=== PATIENT | female | born 1940 | race Caucasian/White ===

== ENCOUNTER 2018-04-20 11:15 | Inpatient (IN) ==
[2018-04-20] MEDS ORDERED: SODIUM CHLORIDE 0.9% 500 ML IV STA ×2 (12:09→12:18)
[2018-04-20 12:18] LABS: Basophils % 0.3 % (0.0-0.8); Eosinophils % 0.2 % (0.00-10.9); Hematocrit 41.4 VOL% (35.7-47.0); Hemoglobin 13.4 GM/DL (12.0-16.0); Immature Granulocytes % 0.8 %; Immature Granulocytes Absolute 0.13 #; Lymphocytes # 0.6 10*3/uL (1.4-4.0); Lymphocytes % 3.5 % (21.3-54.2); Mean Corpuscular HGB Conc 32.4 GM/DL (32-36); Mean Corpuscular Hemoglobin 31 PG (27-34); Mean Corpuscular Volume 95.6 FL (87-102); Mean Platelet Volume 10.6 FL (9.6-12.0); Monocytes % 6.5 % (1.7-12.7); Neutrophils # 14.1 10*3/uL (1.4-7.4); Neutrophils % 88.7 % (38.7-73.9); Platelet Count 223 T/CUMM (130-400); Red Blood Count 4.33 MC/CUMM (3.8-5.5); Red Cell Distribution Width 12.9 % (9.3-17.3); White Blood Count 15.9 T/CUMM (4-12)
[2018-04-20 12:37] LABS: Band Neutrophils 19 % (0-10); Lymphocytes 2 % (20-55); Platelet Estimate Normal; Segmented Neutrophils 72 % (50-85); Total Cells Counted 100
[2018-04-20 12:51] LABS: Albumin 3.6 G/DL (3.4-5.0); Bilirubin,Total 1.6 MG/DL (0.2-1.0); Calcium 9.4 MG/DL (8.5-10.1); Potassium 4.5 MMOL/L (3.5-5.1); Total Protein 7.2 G/DL (6.4-8.3)
[2018-04-20 12:58] LABS: Apearance,Urine Slightly Hazy (Clear); Blood, Urine Negative (Negative); Glucose,Urine (UA) Negative (Negative); Hyaline Casts,Urine 3 /LPF (0-3); Ketones,Urine Negative (Negative); Mucus,Urine Occasional /LPF (Occasional); Nitrite,Urine Negative (Negative); Protein,Urine 30 MG/DL; RBC,Urine 1 /HPF (0-4); Squamous Epithelial Cell,Urine Occasional /HPF (0-10); Urine Color Amber (Yellow); Urine Specific Gravity 1.019 (1.001-1.035); WBC,Urine 3 /HPF (0-6)
[2018-04-20 13:00] LABS: Bilirubin,Urine Small mg/dL (Negative)
[2018-04-20] MEDS ORDERED: ONDANSETRON 4 MG/2 ML VIAL IV PRN (13:21)
[2018-04-20] MEDS ORDERED: CLINDAMYCIN INJ 600 MG in PREMIX 1 EACH IV STA (13:27)
[2018-04-20] MEDS ORDERED: LEVOFLOXACIN INJ 500 MG in PREMIX 1 EACH IV STA (13:27)
[2018-04-20] MEDS: SODIUM CHLORIDE 0.9% 1,000 ML IV SCH (14:45)
[2018-04-20] MEDS ORDERED: ALBUTEROL 2.5 MG/3 ML NEB RESP TX PRN (16:50)
[2018-04-20] MEDS: ACETAMINOPHEN 325 MG TABLET PO PRN (19:11)
[2018-04-20] MEDS: ALBUTEROL 2.5 MG/3 ML NEB RESP TX SCH (19:16)
[2018-04-20] MEDS: BUDESONIDE/FORMOTEROL 160-4.5 INHALER 6 GM INH SCH (21:58)
[2018-04-20] MEDS: DOCUSATE SODIUM 100 MG CAPSULE PO SCH (21:58)
[2018-04-21] MEDS: SODIUM CHLORIDE 0.9% 1,000 ML IV SCH ×2 (00:45→11:30)
[2018-04-21] MEDS: ALBUTEROL 2.5 MG/3 ML NEB RESP TX SCH ×4 (02:11→19:08)
[2018-04-21 08:38] LABS: Albumin 2.9 G/DL (3.4-5.0); Bilirubin,Direct 0.26 MG/DL (0.0-0.20); Bilirubin,Indirect 0.4 MG/DL (0.0-1.0); Bilirubin,Total 0.7 MG/DL (0.2-1.0); Total Protein 6.2 G/DL (6.4-8.3)
[2018-04-21] MEDS ORDERED: LACTATED RINGERS 500 ML IV ONE (09:08)
[2018-04-21 09:58] LABS: INR 1.1
[2018-04-21 10:08] LABS: Calcium 8.5 MG/DL (8.5-10.1); Osmolality,Calculated 287.4 MOS/KG (273-304); Potassium 3.8 MMOL/L (3.5-5.1)
[2018-04-21] MEDS ORDERED: INDOMETHACIN SUPP 50 MG SUPP RECTAL ONE (10:33)
[2018-04-21 10:38] LABS: Mean Corpuscular Volume 99.7 FL (87-102); Mean Platelet Volume 11.3 FL (9.6-12.0); Neutrophils % 85.6 % (38.7-73.9)
[2018-04-21 10:43] LABS: Basophils % 0.4 % (0.0-0.8); Eosinophils # 0.1 10*3/uL (0.0-0.87); Eosinophils % 0.6 % (0.00-10.9); Immature Granulocytes Absolute 0.08 #; Lymphocytes # 0.6 10*3/uL (1.4-4.0); Mean Corpuscular HGB Conc 30.8 GM/DL (32-36); Mean Corpuscular Hemoglobin 31 PG (27-34); Monocytes # 0.4 10*3/uL (0.11-0.8); Monocytes % 5.4 % (1.7-12.7); Platelet Count 190 T/CUMM (130-400); Red Blood Count 3.71 MC/CUMM (3.8-5.5)
[2018-04-21 10:44] LABS: Hemoglobin 11.4 GM/DL (12.0-16.0); White Blood Count 8.1 T/CUMM (4-12)
[2018-04-21] MEDS: BUDESONIDE/FORMOTEROL 160-4.5 INHALER 6 GM INH SCH ×2 (10:48→22:24)
[2018-04-21] MEDS: DOCUSATE SODIUM 100 MG CAPSULE PO SCH ×2 (10:50→22:20)
[2018-04-21] MEDS: PANTOPRAZOLE 40 MG TABLET PO SCH (10:50)
[2018-04-21] MEDS: TRIAMTERENE/HCTZ 37.5-25 MG TABLET PO SCH (10:50)
[2018-04-21] MEDS: CIPROFLOXACIN INJ 400 MG in PREMIX 1 EACH IV SCH ×2 (11:31→22:20)
[2018-04-21] MEDS ORDERED: ALBUTEROL/IPRATROPIUM 3 ML NEB RESP TX ONE (12:24)
[2018-04-21] MEDS ORDERED: fentaNYL 100 MCG/2 ML VIAL ONE (12:43)
[2018-04-21] MEDS ORDERED: MIDAZOLAM 2 MG/2 ML VIAL ONE (12:44)
[2018-04-22] MEDS: ALBUTEROL 2.5 MG/3 ML NEB RESP TX SCH ×4 (00:52→19:05)
[2018-04-22] MEDS: SODIUM CHLORIDE 0.9% 1,000 ML IV SCH ×3 (01:02→11:20)
[2018-04-22 04:41] LABS: Basophils % 0.3 % (0.0-0.8); Eosinophils # 0.1 10*3/uL (0.0-0.87); Eosinophils % 1.3 % (0.00-10.9); Hematocrit 37.2 VOL% (35.7-47.0); Hemoglobin 11.3 GM/DL (12.0-16.0); Immature Granulocytes % 1.2 %; Immature Granulocytes Absolute 0.09 #; Lymphocytes # 0.8 10*3/uL (1.4-4.0); Lymphocytes % 9.8 % (21.3-54.2); Mean Corpuscular HGB Conc 30.4 GM/DL (32-36); Mean Corpuscular Hemoglobin 31 PG (27-34); Mean Corpuscular Volume 101.1 FL (87-102); Mean Platelet Volume 10.6 FL (9.6-12.0); Monocytes # 0.5 10*3/uL (0.11-0.8); Monocytes % 6.9 % (1.7-12.7); Neutrophils # 6.2 10*3/uL (1.4-7.4); Neutrophils % 80.5 % (38.7-73.9); Platelet Count 204 T/CUMM (130-400); Red Blood Count 3.68 MC/CUMM (3.8-5.5); Red Cell Distribution Width 12.9 % (9.3-17.3); White Blood Count 7.7 T/CUMM (4-12)
[2018-04-22 05:09] LABS: Calcium 8.4 MG/DL (8.5-10.1); Osmolality,Calculated 284.3 MOS/KG (273-304); Potassium 4.2 MMOL/L (3.5-5.1); Total Protein 6.2 G/DL (6.4-8.3)
[2018-04-22] MEDS ORDERED: BUPIVACAINE 0.5% 50 ML VIAL ONE (06:58)
[2018-04-22] MEDS ORDERED: LIDOCAINE 1%/EPI INJ 20 ML VIAL ONE (06:58)
[2018-04-22] MEDS ORDERED: TISSUE ADHESIVE 1 EACH APPLICATOR TOP ONE (06:58)
[2018-04-22] MEDS ORDERED: NEOSTIGMINE 10 MG/10 ML VIAL ONE (09:11)
[2018-04-22] MEDS ORDERED: GLYCOPYRROLATE 0.4 MG/2 ML VIAL ONE (09:11)
[2018-04-22] MEDS ORDERED: SEVOFLURANE 1 UNIT/15 MINUTE INH ONE (09:11)
[2018-04-22] MEDS ORDERED: ONDANSETRON 4 MG/2 ML VIAL ONE ×2 (09:11→11:11)
[2018-04-22] MEDS ORDERED: PROPOFOL 200 MG/20 ML VIAL IV ONE ×2 (09:11→11:11)
[2018-04-22] MEDS ORDERED: ROCURONIUM 100 MG/10 ML VIAL IV ONE ×2 (09:11→11:11)
[2018-04-22] MEDS ORDERED: LACTATED RINGERS 1,000 ML IV ONE (09:12)
[2018-04-22] MEDS ORDERED: fentaNYL 100 MCG/2 ML VIAL ONE (09:13)
[2018-04-22] MEDS ORDERED: ACETAMINOPHEN 1,000 MG/100 ML VIAL IV ONE (09:27)
[2018-04-22] MEDS ORDERED: BUPIVACAINE LIPOSOMAL 20 ML/266 MG VIAL ONE (09:32)
[2018-04-22] MEDS ORDERED: ALBUTEROL/IPRATROPIUM 3 ML NEB RESP TX PRN (10:36)
[2018-04-22] MEDS ORDERED: MORPHINE 4 MG/1 ML VIAL IV PRN ×2 (10:36)
[2018-04-22] MEDS ORDERED: BISACODYL 5 MG TABLET PO PRN (10:36)
[2018-04-22] MEDS ORDERED: ONDANSETRON 4 MG/2 ML VIAL IV PRN (10:36)
[2018-04-22] MEDS ORDERED: SUCCINYLCHOLINE 200 MG/10 ML VIAL ONE (11:11)
[2018-04-22] MEDS ORDERED: LIDOCAINE 2% 5 ML VIAL ONE (11:11)
[2018-04-22] MEDS: TRIAMTERENE/HCTZ 37.5-25 MG TABLET PO SCH (11:19)
[2018-04-22] MEDS: BUDESONIDE/FORMOTEROL 160-4.5 INHALER 6 GM INH SCH ×2 (11:19→21:09)
[2018-04-22] MEDS: CIPROFLOXACIN INJ 400 MG in PREMIX 1 EACH IV SCH ×2 (11:19→21:13)
[2018-04-22] MEDS: DOCUSATE SODIUM 100 MG CAPSULE PO SCH (11:20)
[2018-04-22] MEDS: PANTOPRAZOLE 40 MG TABLET PO SCH (11:20)
[2018-04-22] MEDS: LACTATED RINGERS 1,000 ML IV SCH (11:29)
[2018-04-22] MEDS: ACETAMINOPHEN 325 MG TABLET PO PRN (14:45)
[2018-04-22] MEDS: KETOROLAC 15 MG/1 ML VIAL IV PRN (14:46)
[2018-04-23] MEDS: ALBUTEROL 2.5 MG/3 ML NEB RESP TX SCH ×4 (00:33→19:44)
[2018-04-23] MEDS: LACTATED RINGERS 1,000 ML IV SCH (01:40)
[2018-04-23 05:02] LABS: Basophils % 0.2 % (0.0-0.8); Eosinophils # 0.1 10*3/uL (0.0-0.87); Eosinophils % 0.5 % (0.00-10.9); Hematocrit 35.9 VOL% (35.7-47.0); Hemoglobin 10.8 GM/DL (12.0-16.0); Immature Granulocytes % 0.6 %; Immature Granulocytes Absolute 0.07 #; Lymphocytes # 0.6 10*3/uL (1.4-4.0); Lymphocytes % 5.4 % (21.3-54.2); Mean Corpuscular HGB Conc 30.1 GM/DL (32-36); Mean Corpuscular Hemoglobin 30 PG (27-34); Mean Corpuscular Volume 100.8 FL (87-102); Mean Platelet Volume 10.1 FL (9.6-12.0); Monocytes # 0.7 10*3/uL (0.11-0.8); Monocytes % 5.9 % (1.7-12.7); Neutrophils % 87.4 % (38.7-73.9); Platelet Count 206 T/CUMM (130-400); Red Blood Count 3.56 MC/CUMM (3.8-5.5); Red Cell Distribution Width 13.1 % (9.3-17.3); White Blood Count 11.4 T/CUMM (4-12)
[2018-04-23 05:25] LABS: Albumin 2.6 G/DL (3.4-5.0); Bilirubin,Total 0.8 MG/DL (0.2-1.0); Calcium 8.4 MG/DL (8.5-10.1); Osmolality,Calculated 280.7 MOS/KG (273-304); Potassium 4.5 MMOL/L (3.5-5.1); Total Protein 5.7 G/DL (6.4-8.3)
[2018-04-23] MEDS: KETOROLAC 15 MG/1 ML VIAL IV PRN ×3 (08:41→22:29)
[2018-04-23] MEDS: PANTOPRAZOLE 40 MG VIAL IV SCH (08:41)
[2018-04-23] MEDS: CIPROFLOXACIN INJ 400 MG in PREMIX 1 EACH IV SCH ×2 (08:50→20:50)
[2018-04-23] MEDS: TRIAMTERENE/HCTZ 37.5-25 MG TABLET PO SCH (10:30)
[2018-04-23] MEDS: BUDESONIDE/FORMOTEROL 160-4.5 INHALER 6 GM INH SCH ×2 (10:31→20:49)
[2018-04-24] MEDS: ALBUTEROL 2.5 MG/3 ML NEB RESP TX SCH ×4 (00:08→19:30)
[2018-04-24] MEDS: LACTATED RINGERS 1,000 ML IV SCH ×3 (00:42→15:30)
[2018-04-24] MEDS: KETOROLAC 15 MG/1 ML VIAL IV PRN ×2 (07:53→15:29)
[2018-04-24] MEDS: PANTOPRAZOLE 40 MG VIAL IV SCH (08:41)
[2018-04-24] MEDS: CIPROFLOXACIN INJ 400 MG in PREMIX 1 EACH IV SCH ×2 (08:46→21:59)
[2018-04-24] MEDS: TRIAMTERENE/HCTZ 37.5-25 MG TABLET PO SCH (08:51)
[2018-04-24] MEDS: BUDESONIDE/FORMOTEROL 160-4.5 INHALER 6 GM INH SCH ×2 (10:05→21:58)
[2018-04-25] MEDS: ALBUTEROL 2.5 MG/3 ML NEB RESP TX SCH ×3 (00:35→12:13)
[2018-04-25] MEDS: KETOROLAC 15 MG/1 ML VIAL IV PRN (05:16)
[2018-04-25] MEDS: TRIAMTERENE/HCTZ 37.5-25 MG TABLET PO SCH (09:11)
[2018-04-25] MEDS: PANTOPRAZOLE 40 MG VIAL IV SCH (09:11)
[2018-04-25] MEDS: CIPROFLOXACIN INJ 400 MG in PREMIX 1 EACH IV SCH (09:12)
[2018-04-25] MEDS: BUDESONIDE/FORMOTEROL 160-4.5 INHALER 6 GM INH SCH (09:14)
[2018-04-25 11:48] VITALS: BP 113/70
[2018-04-25] MEDS ORDERED: CIPROFLOXACIN 500 MG TABLET PO SCH (21:00)
== END 2018-04-25 15:35 | disposition home or self-care (01) | DRG 853 ==
LOC: N.ED 11:15 → N.EDINP 13:20 → N.2E 14:42
PROVIDERS: ADMIT Family Medicine; ATTEND Family Medicine
PROC: ERCPWSP (ICD-10-PCS; 2018-04-21 11:50)
PROC: LAPCHOL (2018-04-22 07:16)

== ENCOUNTER 2018-08-24 09:59 | Observation (INO) ==
[2018-08-24] MEDS ORDERED: methylPREDNISolone SOD SUC 125 MG/2 ML VIAL IV STA (10:40)
[2018-08-24] MEDS ORDERED: ALBUTEROL/IPRATROPIUM 3 ML NEB RESP TX STA (10:40)
[2018-08-24] MEDS ORDERED: LEVOFLOXACIN INJ 500 MG in PREMIX 1 EACH IV STA (10:40)
[2018-08-24 10:47] LABS: Basophils # 0.1 10*3/uL (0.0-0.2); Basophils % 0.4 % (0.0-0.8); Eosinophils # 0.3 10*3/uL (0.0-0.87); Eosinophils % 1.8 % (0.00-10.9); Hematocrit 43.3 VOL% (35.7-47.0); Hemoglobin 13.7 GM/DL (12.0-16.0); Immature Granulocytes % 0.6 %; Immature Granulocytes Absolute 0.09 #; Lymphocytes # 1.2 10*3/uL (1.4-4.0); Lymphocytes % 8.4 % (21.3-54.2); Mean Corpuscular HGB Conc 31.6 GM/DL (32-36); Mean Corpuscular Volume 92.5 FL (87-102); Mean Platelet Volume 9.8 FL (9.6-12.0); Neutrophils % 81.8 % (38.7-73.9); Platelet Count 299 T/CUMM (130-400); Red Blood Count 4.68 MC/CUMM (3.8-5.5); Red Cell Distribution Width 14.2 % (9.3-17.3); White Blood Count 14.1 T/CUMM (4-12)
[2018-08-24 11:05] LABS: Albumin 3.2 G/DL (3.4-5.0); Bilirubin,Total 0.5 MG/DL (0.2-1.0); Calcium 9.2 MG/DL (8.5-10.1); Total Protein 6.5 G/DL (6.4-8.3)
[2018-08-24] MEDS ORDERED: GLUCAGON 1 MG VIAL IM PRN (12:59)
[2018-08-24] MEDS ORDERED: DEXTROSE 50% 25 GM/50 ML SYRINGE IV PRN (12:59)
[2018-08-24] MEDS ORDERED: ACETAMINOPHEN 325 MG TABLET PO PRN (13:04)
[2018-08-24] MEDS ORDERED: ONDANSETRON 4 MG/2 ML VIAL IV PRN (13:04)
[2018-08-24] MEDS: ALBUTEROL/IPRATROPIUM 3 ML NEB RESP TX SCH ×2 (14:07→20:16)
[2018-08-24] MEDS ORDERED: ALBUTEROL 2.5 MG/3 ML NEB RESP TX PRN (16:29)
[2018-08-24] MEDS ORDERED: LISINOPRIL 20 MG TABLET PO PRN (16:29)
[2018-08-24] MEDS: methylPREDNISolone SOD SUC 125 MG/2 ML VIAL IV SCH (17:33)
[2018-08-24] MEDS: BUDESONIDE/FORMOTEROL 160-4.5 INHALER 6 GM INH SCH (21:39)
[2018-08-24] MEDS: ATORVASTATIN 20 MG TABLET PO SCH ×2 (21:40→21:43)
[2018-08-24] MEDS: DOCUSATE SODIUM 100 MG CAPSULE PO SCH ×2 (21:40→21:43)
[2018-08-25] MEDS: ALBUTEROL/IPRATROPIUM 3 ML NEB RESP TX SCH ×5 (00:15→19:15)
[2018-08-25] MEDS: methylPREDNISolone SOD SUC 125 MG/2 ML VIAL IV SCH (01:30)
[2018-08-25] MEDS: DOCUSATE SODIUM 100 MG CAPSULE PO SCH ×2 (08:59→20:47)
[2018-08-25] MEDS ORDERED: GLIMEPIRIDE 2 MG TABLET PO SCH (09:00)
[2018-08-25] MEDS ORDERED: predniSONE 10 MG TABLET PO SCH (09:00)
[2018-08-25] MEDS ORDERED: TRIAMTERENE/HCTZ 37.5-25 MG TABLET PO SCH (09:00)
[2018-08-25] MEDS ORDERED: PANTOPRAZOLE 40 MG TABLET PO SCH (09:00)
[2018-08-25] MEDS: BUDESONIDE/FORMOTEROL 160-4.5 INHALER 6 GM INH SCH ×2 (09:02→20:47)
[2018-08-25] MEDS: ATORVASTATIN 20 MG TABLET PO SCH (20:47)
[2018-08-26 03:47] VITALS: BP 132/77
== END 2018-08-26 07:00 | disposition home or self-care (01) ==
LOC: N.EDINP 09:59 → N.ED 09:59 → N.5E 16:06
PROVIDERS: ADMIT Family Medicine; ATTEND Family Medicine

== ENCOUNTER 2018-09-28 14:14 | Inpatient (IN) ==
[2018-09-28] MEDS ORDERED: ALBUTEROL/IPRATROPIUM 3 ML NEB RESP TX STA ×2 (14:44→22:00)
[2018-09-28] MEDS ORDERED: SODIUM CHLORIDE 0.9% 500 ML IV STA (14:44)
[2018-09-28] MEDS ORDERED: LEVOFLOXACIN INJ 750 MG in PREMIX 1 EACH IV STA (14:44)
[2018-09-28] MEDS ORDERED: methylPREDNISolone SOD SUC 125 MG/2 ML VIAL IV STA (14:44)
[2018-09-28 14:51] LABS: Basophils % 0.3 % (0.0-0.8); Eosinophils % 0.2 % (0.00-10.9); Hematocrit 45.5 VOL% (35.7-47.0); Hemoglobin 14.4 GM/DL (12.0-16.0); Immature Granulocytes % 1.1 %; Immature Granulocytes Absolute 0.11 #; Lymphocytes # 0.3 10*3/uL (1.4-4.0); Lymphocytes % 2.7 % (21.3-54.2); Mean Corpuscular HGB Conc 31.6 GM/DL (32-36); Mean Corpuscular Volume 92.5 FL (87-102); Mean Platelet Volume 10.1 FL (9.6-12.0); Monocytes % 0.4 % (1.7-12.7); Neutrophils % 95.3 % (38.7-73.9); Platelet Count 219 T/CUMM (130-400); Red Blood Count 4.92 MC/CUMM (3.8-5.5); Red Cell Distribution Width 14.6 % (9.3-17.3); White Blood Count 10.3 T/CUMM (4-12)
[2018-09-28 15:12] LABS: Albumin 3.5 G/DL (3.4-5.0); Calcium 9.7 MG/DL (8.5-10.1); Osmolality,Calculated 288.1 MOS/KG (273-304); Total Protein 6.6 G/DL (6.4-8.3)
[2018-09-28 15:17] LABS: Band Neutrophils 6 % (0-10); Eosinophils 1 % (0-10); Lymphocytes 2 % (20-55); Platelet Estimate Normal; Segmented Neutrophils 90 % (50-85); Total Cells Counted 100
[2018-09-28] MEDS ORDERED: SODIUM CHLORIDE 0.9% 2,500 ML IV ONE (15:19)
[2018-09-28 15:26] LABS: Apearance,Urine Slightly Hazy (Clear); Bilirubin,Urine Negative (Negative); Blood, Urine Moderate mg/dL (Negative); Glucose,Urine (UA) Negative (Negative); Ketones,Urine 5 mg/dL (Negative); Nitrite,Urine Negative (Negative); Protein,Urine 30 MG/DL; RBC,Urine 20 /HPF (0-4); Squamous Epithelial Cell,Urine Occasional /HPF (0-10); Urine Specific Gravity 1.031 (1.001-1.035); WBC,Urine 79 /HPF (0-6)
[2018-09-28 15:27] LABS: Urine Color Dark yellow (Yellow)
[2018-09-28] MEDS ORDERED: ONDANSETRON 4 MG/2 ML VIAL IV PRN (15:38)
[2018-09-28] MEDS ORDERED: SODIUM CHLORIDE 0.9% 1,000 ML IV STA (15:41)
[2018-09-28] MEDS ORDERED: SODIUM CHLORIDE 0.9% 1,000 ML IV SCH (16:00)
[2018-09-28] MEDS ORDERED: MAGNESIUM SULF RIDER 2 GM in PREMIX 1 EACH IV ONE (17:34)
[2018-09-28] MEDS: ALBUTEROL/IPRATROPIUM 3 ML NEB RESP TX SCH ×2 (19:26→23:21)
[2018-09-28] MEDS: MAGNESIUM SULF IV SCH (20:36)
[2018-09-28] MEDS: ATORVASTATIN 20 MG TABLET PO SCH (20:36)
[2018-09-28] MEDS: BUDESONIDE/FORMOTEROL 160-4.5 INHALER 6 GM INH SCH (20:36)
[2018-09-28] MEDS: DOCUSATE SODIUM 100 MG CAPSULE PO SCH (20:36)
[2018-09-28] MEDS: POTASSIUM CHLORIDE IV SCH (20:36)
[2018-09-28] MEDS: MAGNESIUM CHLORIDE 64 MG TABLET PO SCH (20:36)
[2018-09-28] MEDS: SODIUM CHLORIDE 0.9% IV SCH (20:36)
[2018-09-28] MEDS: metFORMIN 500 MG TABLET PO SCH (20:36)
[2018-09-28] MEDS ORDERED: FUROSEMIDE 20 MG/2 ML VIAL IV ONE (21:58)
[2018-09-28] MEDS: INSULIN LISPRO 100 UNIT/ML SUBCUT SCH (23:03)
[2018-09-28] MEDS: methylPREDNISolone SOD SUC 40 MG/1 ML VIAL IV SCH (23:51)
[2018-09-29] MEDS: ALBUTEROL/IPRATROPIUM 3 ML NEB RESP TX SCH ×6 (04:15→22:50)
[2018-09-29 04:20] LABS: Basophils # 0.1 10*3/uL (0.0-0.2); Basophils % 0.4 % (0.0-0.8); Hematocrit 41.8 VOL% (35.7-47.0); Hemoglobin 12.7 GM/DL (12.0-16.0); Immature Granulocytes % 2.3 %; Immature Granulocytes Absolute 0.51 #; Lymphocytes # 0.4 10*3/uL (1.4-4.0); Lymphocytes % 1.7 % (21.3-54.2); Mean Corpuscular HGB Conc 30.4 GM/DL (32-36); Mean Corpuscular Volume 95.9 FL (87-102); Mean Platelet Volume 10.6 FL (9.6-12.0); Monocytes % 2.4 % (1.7-12.7); Neutrophils % 93.2 % (38.7-73.9); Platelet Count 192 T/CUMM (130-400); Red Blood Count 4.36 MC/CUMM (3.8-5.5); Red Cell Distribution Width 15.1 % (9.3-17.3); White Blood Count 22.6 T/CUMM (4-12)
[2018-09-29 05:03] LABS: Band Neutrophils 9 % (0-10); Lymphocytes 3 % (20-55); Metamyelocytes 6 %; Myelocytes 4 %; Segmented Neutrophils 76 % (50-85); Total Cells Counted 100
[2018-09-29 05:06] LABS: Albumin 2.9 G/DL (3.4-5.0); Bilirubin,Total 1.7 MG/DL (0.2-1.0); Calcium 8.9 MG/DL (8.5-10.1); Osmolality,Calculated 293.8 MOS/KG (273-304); Risk Ratio 2.49; Thyroid Stimulating Hormone 0.451 uIU/ml (0.358-3.74); Total Protein 5.9 G/DL (6.4-8.3); VLDL CHOLESTEROL 24.8 MG/DL
[2018-09-29 05:10] LABS: Platelet Estimate Normal; Polychromasia Few
[2018-09-29] MEDS: methylPREDNISolone SOD SUC 40 MG/1 ML VIAL IV SCH ×3 (06:19→22:04)
[2018-09-29] MEDS: INSULIN LISPRO 100 UNIT/ML SUBCUT SCH ×4 (07:15→22:28)
[2018-09-29] MEDS: ACETAMINOPHEN 325 MG TABLET PO PRN ×2 (08:24→17:29)
[2018-09-29] MEDS: GLIMEPIRIDE 2 MG TABLET PO SCH (08:24)
[2018-09-29] MEDS: DOCUSATE SODIUM 100 MG CAPSULE PO SCH ×2 (08:24→22:03)
[2018-09-29] MEDS: metFORMIN 500 MG TABLET PO SCH (08:24)
[2018-09-29] MEDS: MAGNESIUM CHLORIDE 64 MG TABLET PO SCH ×2 (08:24→22:03)
[2018-09-29] MEDS: BUDESONIDE/FORMOTEROL 160-4.5 INHALER 6 GM INH SCH ×2 (08:25→22:03)
[2018-09-29] MEDS: PANTOPRAZOLE 40 MG TABLET PO SCH (08:25)
[2018-09-29] MEDS: SODIUM CHLORIDE 0.9% IV SCH (10:45)
[2018-09-29] MEDS: MAGNESIUM SULF IV SCH (10:45)
[2018-09-29] MEDS: POTASSIUM CHLORIDE IV SCH (10:45)
[2018-09-29] MEDS ORDERED: SODIUM CHLORIDE 0.9% 500 ML IV ONE (15:00)
[2018-09-29] MEDS ORDERED: LEVOFLOXACIN INJ 250 MG in PREMIX 1 EACH IV SCH (16:00)
[2018-09-29] MEDS: ATORVASTATIN 20 MG TABLET PO SCH (22:03)
[2018-09-30] MEDS: SODIUM CHLORIDE 0.9% IV SCH ×2 (01:00→16:29)
[2018-09-30] MEDS: POTASSIUM CHLORIDE IV SCH ×2 (01:00→16:29)
[2018-09-30] MEDS: MAGNESIUM SULF IV SCH ×2 (01:00→16:29)
[2018-09-30] MEDS: ALBUTEROL/IPRATROPIUM 3 ML NEB RESP TX SCH ×6 (02:41→23:45)
[2018-09-30 05:31] LABS: Basophils # 0.1 10*3/uL (0.0-0.2); Basophils % 0.2 % (0.0-0.8); Hematocrit 38.3 VOL% (35.7-47.0); Hemoglobin 12.2 GM/DL (12.0-16.0); Immature Granulocytes % 9.8 %; Immature Granulocytes Absolute 2.44 #; Lymphocytes # 0.5 10*3/uL (1.4-4.0); Lymphocytes % 1.8 % (21.3-54.2); Mean Corpuscular HGB Conc 31.9 GM/DL (32-36); Mean Corpuscular Volume 93.9 FL (87-102); Mean Platelet Volume 11.2 FL (9.6-12.0); Monocytes % 2.2 % (1.7-12.7); Platelet Count 175 T/CUMM (130-400); Red Blood Count 4.08 MC/CUMM (3.8-5.5); Red Cell Distribution Width 15.4 % (9.3-17.3)
[2018-09-30 05:53] LABS: Calcium 8.6 MG/DL (8.5-10.1); Osmolality,Calculated 299.1 MOS/KG (273-304)
[2018-09-30] MEDS: methylPREDNISolone SOD SUC 40 MG/1 ML VIAL IV SCH ×2 (06:22→17:45)
[2018-09-30 06:34] LABS: Anisocytosis 1+; Band Neutrophils 6 % (0-10); Lymphocytes 8 % (20-55); Platelet Estimate Adequate; Segmented Neutrophils 86 % (50-85); Total Cells Counted 100
[2018-09-30] MEDS: ACETAMINOPHEN 325 MG TABLET PO PRN ×2 (06:38→16:30)
[2018-09-30] MEDS: GLIMEPIRIDE 2 MG TABLET PO SCH (08:56)
[2018-09-30] MEDS: INSULIN LISPRO 100 UNIT/ML SUBCUT SCH ×4 (08:56→22:18)
[2018-09-30] MEDS: DOCUSATE SODIUM 100 MG CAPSULE PO SCH ×2 (08:56→21:27)
[2018-09-30] MEDS: PANTOPRAZOLE 40 MG TABLET PO SCH (08:56)
[2018-09-30] MEDS: MAGNESIUM CHLORIDE 64 MG TABLET PO SCH ×2 (08:56→21:28)
[2018-09-30] MEDS ORDERED: LEVOFLOXACIN INJ 750 MG in PREMIX 1 EACH IV SCH (09:00)
[2018-09-30] MEDS: BUDESONIDE/FORMOTEROL 160-4.5 INHALER 6 GM INH SCH ×2 (09:00→21:29)
[2018-09-30] MEDS: ATORVASTATIN 20 MG TABLET PO SCH (21:27)
[2018-10-01] MEDS: methylPREDNISolone SOD SUC 40 MG/1 ML VIAL IV SCH ×3 (00:57→16:05)
[2018-10-01] MEDS: ALBUTEROL/IPRATROPIUM 3 ML NEB RESP TX SCH ×6 (03:35→23:38)
[2018-10-01] MEDS: POTASSIUM CHLORIDE IV SCH ×2 (05:46→18:30)
[2018-10-01] MEDS: SODIUM CHLORIDE 0.9% IV SCH ×2 (05:46→18:30)
[2018-10-01] MEDS: MAGNESIUM SULF IV SCH ×2 (05:46→18:30)
[2018-10-01 06:22] LABS: Basophils % 0.2 % (0.0-0.8); Hematocrit 37.2 VOL% (35.7-47.0); Hemoglobin 11.9 GM/DL (12.0-16.0); Immature Granulocytes % 10.6 %; Immature Granulocytes Absolute 1.78 #; Lymphocytes # 0.3 10*3/uL (1.4-4.0); Lymphocytes % 1.9 % (21.3-54.2); Mean Corpuscular Volume 93.2 FL (87-102); Mean Platelet Volume 11.3 FL (9.6-12.0); Monocytes % 1.7 % (1.7-12.7); Neutrophils % 85.6 % (38.7-73.9); Platelet Count 191 T/CUMM (130-400); Red Blood Count 3.99 MC/CUMM (3.8-5.5); Red Cell Distribution Width 15.5 % (9.3-17.3); White Blood Count 16.9 T/CUMM (4-12)
[2018-10-01 06:37] LABS: Calcium 8.5 MG/DL (8.5-10.1); Osmolality,Calculated 300.1 MOS/KG (273-304)
[2018-10-01 06:46] LABS: Anisocytosis 1+; Platelet Estimate Adequate
[2018-10-01] MEDS: BUDESONIDE/FORMOTEROL 160-4.5 INHALER 6 GM INH SCH ×2 (09:20→22:42)
[2018-10-01] MEDS: INSULIN LISPRO 100 UNIT/ML SUBCUT SCH ×4 (09:21→21:25)
[2018-10-01] MEDS: GLIMEPIRIDE 2 MG TABLET PO SCH (09:22)
[2018-10-01] MEDS: PANTOPRAZOLE 40 MG TABLET PO SCH (09:22)
[2018-10-01] MEDS: DOCUSATE SODIUM 100 MG CAPSULE PO SCH ×2 (09:22→21:25)
[2018-10-01] MEDS: MAGNESIUM CHLORIDE 64 MG TABLET PO SCH ×2 (09:22→21:25)
[2018-10-01] MEDS: LEVOFLOXACIN INJ 750 MG in PREMIX 1 EACH IV SCH (09:23)
[2018-10-01] MEDS: ATORVASTATIN 20 MG TABLET PO SCH (21:25)
[2018-10-02] MEDS: methylPREDNISolone SOD SUC 40 MG/1 ML VIAL IV SCH ×3 (00:56→17:47)
[2018-10-02] MEDS: ALBUTEROL/IPRATROPIUM 3 ML NEB RESP TX SCH ×6 (03:03→23:57)
[2018-10-02] MEDS: SODIUM CHLORIDE 0.9% IV SCH (04:38)
[2018-10-02] MEDS: MAGNESIUM SULF IV SCH (04:38)
[2018-10-02] MEDS: POTASSIUM CHLORIDE IV SCH (04:38)
[2018-10-02 04:45] LABS: Basophils # 0.1 10*3/uL (0.0-0.2); Basophils % 0.3 % (0.0-0.8); Hematocrit 39.4 VOL% (35.7-47.0); Hemoglobin 12.1 GM/DL (12.0-16.0); Immature Granulocytes % 2.3 %; Immature Granulocytes Absolute 0.36 #; Lymphocytes # 0.5 10*3/uL (1.4-4.0); Mean Corpuscular HGB Conc 30.7 GM/DL (32-36); Mean Corpuscular Volume 95.6 FL (87-102); Mean Platelet Volume 10.9 FL (9.6-12.0); Monocytes % 3.5 % (1.7-12.7); Neutrophils % 90.9 % (38.7-73.9); Platelet Count 195 T/CUMM (130-400); Red Blood Count 4.12 MC/CUMM (3.8-5.5); Red Cell Distribution Width 15.4 % (9.3-17.3); White Blood Count 15.5 T/CUMM (4-12)
[2018-10-02 05:16] LABS: Band Neutrophils 5 % (0-10); Lymphocytes 4 % (20-55); Platelet Estimate Normal; Segmented Neutrophils 89 % (50-85); Total Cells Counted 100
[2018-10-02 05:17] LABS: Anisocytosis 1+; Macrocytosis Slight
[2018-10-02 05:20] LABS: Albumin 2.6 G/DL (3.4-5.0); Bilirubin,Total 0.5 MG/DL (0.2-1.0); Calcium 8.5 MG/DL (8.5-10.1); Osmolality,Calculated 298.6 MOS/KG (273-304); Total Protein 5.9 G/DL (6.4-8.3)
[2018-10-02] MEDS: BUDESONIDE/FORMOTEROL 160-4.5 INHALER 6 GM INH SCH ×2 (08:25→20:04)
[2018-10-02] MEDS: INSULIN LISPRO 100 UNIT/ML SUBCUT SCH ×4 (08:25→20:48)
[2018-10-02] MEDS: PANTOPRAZOLE 40 MG TABLET PO SCH (08:26)
[2018-10-02] MEDS: DOCUSATE SODIUM 100 MG CAPSULE PO SCH ×2 (08:26→20:04)
[2018-10-02] MEDS: LEVOFLOXACIN INJ 750 MG in PREMIX 1 EACH IV SCH (08:26)
[2018-10-02] MEDS: GLIMEPIRIDE 2 MG TABLET PO SCH (08:26)
[2018-10-02] MEDS: MAGNESIUM CHLORIDE 64 MG TABLET PO SCH (08:27)
[2018-10-02] MEDS: POTASSIUM CHLORIDE INJ 10 MEQ in SODIUM CHLORIDE 0.9% 1,000 ML IV SCH ×2 (09:33→20:09)
[2018-10-02] MEDS: NICOTINE 14 MG/24 HR PATCH TRANSDERM SCH (10:18)
[2018-10-02] MEDS: cefTRIAXone 1,000 MG in SYRINGE 1 EACH IV SCH (11:15)
[2018-10-02] MEDS: ATORVASTATIN 20 MG TABLET PO SCH (20:04)
[2018-10-03] MEDS: methylPREDNISolone SOD SUC 40 MG/1 ML VIAL IV SCH ×2 (00:33→08:28)
[2018-10-03] MEDS: ALBUTEROL/IPRATROPIUM 3 ML NEB RESP TX SCH ×4 (03:05→11:00)
[2018-10-03 05:47] LABS: Basophils # 0.1 10*3/uL (0.0-0.2); Basophils % 0.6 % (0.0-0.8); Hematocrit 39.6 VOL% (35.7-47.0); Hemoglobin 12.3 GM/DL (12.0-16.0); Immature Granulocytes Absolute 0.49 #; Lymphocytes # 0.5 10*3/uL (1.4-4.0); Lymphocytes % 5.3 % (21.3-54.2); Mean Corpuscular HGB Conc 31.1 GM/DL (32-36); Mean Corpuscular Volume 95.7 FL (87-102); Mean Platelet Volume 10.8 FL (9.6-12.0); Neutrophils % 85.1 % (38.7-73.9); Platelet Count 177 T/CUMM (130-400); Red Blood Count 4.14 MC/CUMM (3.8-5.5); Red Cell Distribution Width 15.3 % (9.3-17.3); White Blood Count 9.8 T/CUMM (4-12)
[2018-10-03 06:11] LABS: Albumin 2.4 G/DL (3.4-5.0); Bilirubin,Total 0.5 MG/DL (0.2-1.0); Calcium 8.3 MG/DL (8.5-10.1); Osmolality,Calculated 298.7 MOS/KG (273-304); Total Protein 5.5 G/DL (6.4-8.3)
[2018-10-03 08:08] VITALS: BP 149/68
[2018-10-03] MEDS: POTASSIUM CHLORIDE INJ 10 MEQ in SODIUM CHLORIDE 0.9% 1,000 ML IV SCH (08:27)
[2018-10-03] MEDS: GLIMEPIRIDE 2 MG TABLET PO SCH (08:28)
[2018-10-03] MEDS: cefTRIAXone 1,000 MG in SYRINGE 1 EACH IV SCH (08:28)
[2018-10-03] MEDS: INSULIN LISPRO 100 UNIT/ML SUBCUT SCH (08:29)
[2018-10-03] MEDS: NICOTINE 14 MG/24 HR PATCH TRANSDERM SCH (08:29)
[2018-10-03] MEDS: DOCUSATE SODIUM 100 MG CAPSULE PO SCH (08:29)
[2018-10-03] MEDS: PANTOPRAZOLE 40 MG TABLET PO SCH (08:29)
[2018-10-03] MEDS: BUDESONIDE/FORMOTEROL 160-4.5 INHALER 6 GM INH SCH (08:30)
== END 2018-10-03 11:17 | disposition home or self-care (01) | DRG 191 ==
LOC: EDUNIT# → EDBD → N.ED 14:14 → N.EDINP 15:36 → N.2E 16:35
PROVIDERS: ADMIT Family Medicine; ATTEND Family Medicine